=== PATIENT | female | born 1940 | race Caucasian/White ===

== ENCOUNTER 2017-02-12 10:04 | Observation (INO) | payer MEDICARE ==
[2017-02-10 12:24] VITALS: BP 188/92
[2017-02-10 12:29] LABS: HEMOGLOBIN 12.7 g/dL (11.7-16.4)
[2017-02-10 12:41] LABS: BLOOD UREA NITROGEN 23 mg/dL (7-18)
[~2017-02-12] VITALS: Ht 154.9 cm; Wt 63.8 kg
[~2017-02-12 10:04] MED LIST: ALPR0.5T6 PO; ASPI-496 PO; FURO20TA3 PO; LABE200T3 PO; SIMV10TA3 PO; VALS160T3 PO; VITA1CAP PO; VITAMIN D3 PO
[2017-02-12] MEDS ORDERED: SODIUM CHLORIDE 0.9% 1,000 ML IV SCH ×2 (10:57→15:28)
[2017-02-12] MEDS ORDERED: CHOL-29 PO (11:16)
[2017-02-12] MEDS ORDERED: METOPROLOL 1 MG/ML, 5ML ONE (12:15)
[2017-02-12] MEDS ORDERED: METOPROLOL 1 MG/ML, 5ML IVPush ONE (12:30)
[2017-02-12] MEDS ORDERED: HEPARIN 1,000 UNITS/ML, 10ML ONE (13:05)
[2017-02-12] MEDS ORDERED: BIVALIRUDIN 250 MG ONE ×2 (13:05→15:52)
[2017-02-12] MEDS ORDERED: TICAGRELOR 90 MG TABLET ONE ×2 (13:05→15:33)
[2017-02-12] MEDS ORDERED: LIDOCAINE 2%, 20ML ONE (13:05)
[2017-02-12] MEDS ORDERED: MIDAZOLAM 1 MG/ML, 5ML ONE ×2 (13:05→14:33)
[2017-02-12] MEDS ORDERED: FENTANYL PF 100 MCG/2ML ONE ×2 (13:05→14:33)
[2017-02-12] MEDS ORDERED: VERAPAMIL 2.5 MG/ML, 2ML ONE (13:05)
[2017-02-12] MEDS ORDERED: DIPHENHYDRAMINE 50 MG/ML, 1ML ONE (14:34)
[2017-02-12] MEDS ORDERED: BIVALIRUDIN 250 MG in DEXTROSE 5% 50 ML IV SCH (15:28)
[2017-02-12] MEDS ORDERED: ASPIRIN 325 MG TABLET EC ONE (15:29)
[2017-02-12] MEDS ORDERED: ACETAMINOPHEN 325 MG TABLET PO PRN (15:30)
[2017-02-12] MEDS ORDERED: ONDANSETRON 2MG/ML, 2ML IVPush PRN (15:30)
[2017-02-12 16:52] VITALS: BP 179/85
[2017-02-12 20:21] VITALS: BP 128/65
[2017-02-12] MEDS ORDERED: VALSARTAN 160 MG TABLET PO SCH (21:00)
[2017-02-12] MEDS ORDERED: ATORVASTATIN 40 MG TABLET PO SCH (21:00)
[2017-02-12] MEDS: VALSARTAN 160 MG TABLET PO SCH (21:25)
[2017-02-12] MEDS: TICAGRELOR 90 MG TABLET PO SCH (21:25)
[2017-02-13 02:13] VITALS: BP 124/65
[2017-02-13 05:35] LABS: BLOOD UREA NITROGEN 22 mg/dL (7-18)
[2017-02-13 07:50] VITALS: BP 120/76
[2017-02-13] MEDS ORDERED: LABETALOL 200 MG TABLET PO SCH (09:00)
[2017-02-13] MEDS: ASPIRIN 81 MG TABLET EC PO SCH ×2 (09:00→09:08)
[2017-02-13] MEDS ORDERED: FUROSEMIDE 20 MG TABLET PO SCH (09:00)
[2017-02-13] MEDS: LABETALOL 200 MG TABLET PO SCH ×2 (09:00→09:08)
[2017-02-13] MEDS ORDERED: CHOLECALCIFEROL 1,000 UNIT TABLET PO SCH (09:00)
[2017-02-13] MEDS ORDERED: ASPIRIN 81 MG TABLET EC PO SCH (09:00)
[2017-02-13] MEDS ORDERED: MULTIVITS,STRESS FORMULA 1 TABLET PO SCH (09:00)
[2017-02-13] MEDS: VALSARTAN 160 MG TABLET PO SCH (09:08)
[2017-02-13] MEDS: TICAGRELOR 90 MG TABLET PO SCH (09:08)
[2017-02-13] MEDS ORDERED: TICA90TA PO (09:11)
== END 2017-02-13 10:45 | disposition home or self-care (01) ==
LOC: CACL 10:04 → EDSTATUS 11:00 → ORIP 14:58 → 5SO 15:44 → DCLOUNGE 02-13 10:42
PROVIDERS: ADMIT Internal Medicine Cardiovascular Disease; ATTEND Internal Medicine Cardiovascular Disease
DX: I27.2 Other secondary pulmonary hypertension (principal)
CPT/HCPCS: 36415; 71020; 78582; 80048; 82040; 85025; 85610; 85730; 93005; 93460; 96365; 96366; 96375; A9540; A9558; C1725; C1769; C1874; C1887; C1894; C9600; G0378; J0583; J1200; J1644; J2250; J3010; J3490; Q9967; 96374

== ENCOUNTER → 2018-06-24 | Outpatient (CLI) | payer MEDICARE ==
[~2018-06-24] MED LIST changes: +CHOL-29 PO; -LABE200T3 PO; +LABE200T6 PO; +TICA90TA PO
== END | disposition home or self-care (01) ==
LOC: CFH 10:59
PROVIDERS: ATTEND Internal Medicine Cardiovascular Disease
DX: I08.3 Combined rheumatic disorders of mitral, aortic and tricuspid valves (principal); I10 Essential (primary) hypertension; E78.5 Hyperlipidemia, unspecified; I25.10 Atherosclerotic heart disease of native coronary artery without angina pectoris; Z95.5 Presence of coronary angioplasty implant and graft
CPT/HCPCS: 93306

== ENCOUNTER → 2018-08-19 | Outpatient (CLI) | payer MEDICARE | END | disposition home or self-care (01) | LOC: CFH 12:21 | PROVIDERS: ATTEND Internal Medicine Cardiovascular Disease | DX: R06.02 Shortness of breath (principal); I34.0 Nonrheumatic mitral (valve) insufficiency; I25.10 Atherosclerotic heart disease of native coronary artery without angina pectoris; I10 Essential (primary) hypertension | CPT/HCPCS: 78452; 93017; A9502 ==

== ENCOUNTER → 2019-09-08 | Outpatient (CLI) | payer MEDICARE ==
[2019-09-08 12:02] LABS: FOLATE LEVEL > 20.0 ng/mL (3.1-17.5)
== END | disposition home or self-care (01) ==
LOC: LAB 11:06
PROVIDERS: ATTEND Internal Medicine
DX: R53.83 Other fatigue (principal)
CPT/HCPCS: 36415; 82607; 82746; 84443